=== PATIENT | female | born 1990 | race Caucasian/White ===

== ENCOUNTER → 2018-09-18 | Outpatient (CLI) | payer OTHER | LOC: RADECHMAIN 11:01 | PROVIDERS: ATTEND Family Medicine | DX: R00.2 Palpitations (principal) | CPT/HCPCS: 93005; 93270 ==

== ENCOUNTER → 2019-04-07 | Outpatient (CLI) | payer OTHER ==
[2019-04-07 15:04] LABS: Basophils % (A) 0 %; Eosinophils # (A) 0.1 k/uL (0-0.7); Eosinophils % (A) 2 %; HCT 35.5 % (34.0-46.0); HGB 12.1 gm/dL (11.4-16.0); Lymphocytes # (A) 2.3 k/uL (1.0-4.8); Lymphocytes % (A) 36 %; MCH 30.3 pg (25.0-35.0); MCV 89.3 fL (80.0-100.0); Mean Platelet Volume 6.6; Monocytes # (A) 0.6 k/uL (0-1.0); Monocytes % (A) 10 %; Neutrophils % (A) 48 %; Platelet Count 235 k/uL (150-450); RBC 3.98 m/uL (3.80-5.40); RDW 12.3 % (11.5-15.5); WBC 6.2 k/uL (3.8-10.6)
== END | disposition home or self-care (01) ==
LOC: LABWHC1 14:04
PROVIDERS: ATTEND Obstetrics & Gynecology
DX: Z01.812 Encounter for preprocedural laboratory examination (principal)
CPT/HCPCS: 36415; 85025

== ENCOUNTER 2019-04-09 07:17 | Day surgery (SDC) | payer OTHER ==
[2019-04-07 14:23] VITALS: BMI 24.3
[~2019-04-09 07:17] MED LIST: DEXAMETHASONE SOD PHOSPHATE 10 MG/ML 1 ML VIAL IV ONE; LACTATED RINGERS 1,000 ML IV SCH; LIDOCAINE 1% 20 ML VIAL (10MG/ML) FOR IV START INTRADERMA PRN; ONDANSETRON 4 MG/2 ML VIAL IVP ONE; Pre Op ABX Message 1 EACH MISC MISCELLANE ONE
--- NOTE | 2019-04-09 07:45 | P.HPOB ---
History of Present Illness H&P Date: 04/09/19 Chief Complaint: Cervical dysplasia Alissa is a 28-year-old female with cervical dysplasia. She is noted to have CHANDLER-3 on office colposcopy. She is scheduled for a LEEP colposcopy. Risks/benefits/alternatives reviewed with the patient in detail all questions were answered for her prior to proceeding to the operative room. It is noted that she has a IUD in place and she is aware that it may be that the strings have to be cut during the process at this procedure due to proximity of the procedure, this may make the IUD more difficult to remove, but should still be able to be removed without too much difficulty. All questions were answered for her at this time and she is stable for surgery at this time. Past Medical History Past Medical History: No Reported History Additional Past Medical History / Comment(s): Genital HSV, IBS History of Any Multi-Drug Resistant Organisms: None Reported Past Surgical History: No Surgical Hx Reported Additional Past Surgical History / Comment(s): COLONOSCOPY Past Anesthesia/Blood Transfusion Reactions: Previous Problems w/ Anesthesia Additional Past Anesthesia/Blood Transfusion Reaction / Comment(s): EPIDURAL WITH CHILDBIRTH-ELEVATED HEART RATE, RINGING IN EARS AND SHE COLLAPSED. Past Psychological History: No Psychological Hx Reported Smoking Status: Former smoker Past Alcohol Use History: None Reported Additional Past Alcohol Use History / Comment(s): QUIT SMOKING 1 YEAR AGO (2018), SMOKED 4 YEARS -SMOKED OCCASIONALLY. Past Drug Use History: None Reported - Past Family History Mother Family Medical History: Cancer Additional Family Medical History / Comment(s): SKIN CANCER Father Family Medical History: Diabetes Mellitus Medications and Allergies Home Medications Medication Instructions Recorded Confirmed Type Acyclovir (Unknown Dose) 1 tab PO BID 04/07/19 04/09/19 History [place]-3 Fatty Acids/Fish Oil [Fish 1 each PO DAILY 04/07/19 04/07/19 History Oil 1,000 mg Softgel] Vitamin C (Unknown Dose) 1 tab PO DAILY 04/07/19 04/07/19 History Allergies Allergy/AdvReac Type Severity Reaction Status Date / Time No Known Allergies Allergy Verified 04/07/19 13:52 Exam Osteopathic Statement: *. No significant issues noted on an osteopathic structural exam other than those noted in the History and Physical/Consult. Intake and Output 11/21/19 11/22/19 11/22/19 22:59 06:59 14:59 Other: Weight 68 kg - OBG Physical Exam Breast: both: normal (no masses) Abdomen: bowel sounds normal, no diffuse tenderness, no bruit present, no guarding noted, no hepatomegaly, no splenomegaly, no mass Vulva: both: normal Vagina: normal moisture, no discharge Cervix: no lesion, no discharge Uterus: normal size, normal contour Adnexa: both: normal Anus/Rectum: normal perianal skin, no rectal mass, no hemorrhoids, heme negative
[2019-04-09] MEDS ORDERED: fentaNYL (PF) 50 MCG/ML 2 ML AMP ONE (08:37)
[2019-04-09] MEDS ORDERED: PROPOFOL 10 MG/ML 20 ML VIAL IV ONE (08:37)
[2019-04-09] MEDS ORDERED: MIDAZOLAM 2 MG/2 ML VIAL ONE (08:37)
[2019-04-09] MEDS ORDERED: LIDOCAINE 1% INJ 10MG/ML (20 ML MDV) ONE (08:37)
[2019-04-09] MEDS ORDERED: FERRIC SUBSULFATE (MONSELS) JAR TOPICAL ONE (08:37)
[2019-04-09] MEDS ORDERED: KETOROLAC 30 MG/ML 1 ML VIAL ONE (08:37)
[2019-04-09] MEDS ORDERED: IODINE/POTASS IOD (LUGOLS) 8 ML BTL TOPICAL ONE (08:38)
--- NOTE | 2019-04-09 09:09 | P.OP ---
Date of Procedure: 04/09/19 Preoperative Diagnosis: CHANDLER-3 Postoperative Diagnosis: Same Procedure(s) Performed: LEEP colposcopy Anesthesia: CHERELLE Surgeon: Carl Laughlin Estimated Blood Loss (ml): 10 Pathology: other (Cervical cone) Condition: stable Operative Findings: Tissue pathology pending Description of Procedure: Patient was taken to the operating suite where a general anesthetic found be adequate. She was prepped and draped in normal sterile fashion and placed in the dorsal lithotomy position. Initially a coated speculum was inserted into the vagina and anterior and posterior cervix were covered with Lugol solution. Colposcope was brought in and identifying dysplastic areas a 2 cm loop was used to excise a cone of the cervix. Once this was completed ball-tipped cautery was used to obtain excellent hemostasis and desiccate any potential remaining dysplastic tissue on the ectocervical margin. All instruments were then removed. Sponge, lap, needle counts were all correct 2. Patient was then taken to the recovery room in stable and satisfactory condition. Plan - Discharge Summary New Discharge Prescriptions: New Ibuprofen [Motrin] 600 mg PO Q6HR PRN #30 tab PRN Reason: Pain HYDROcodone/APAP 5-325MG [[place] 5-325] 1 tab PO Q4HR PRN #30 tab PRN Reason: Pain No Action Acyclovir (Unknown Dose) 1 tab PO BID Vitamin C (Unknown Dose) 1 tab PO DAILY [place]-3 Fatty Acids/Fish Oil [Fish Oil 1,000 mg Softgel] 1 each PO DAILY Discharge Medication List Acyclovir (Unknown Dose) 1 tab PO BID 04/07/19 [History] [place]-3 Fatty Acids/Fish Oil [Fish Oil 1,000 mg Softgel] 1 each PO DAILY 04/07/19 [History] Vitamin C (Unknown Dose) 1 tab PO DAILY 04/07/19 [History] HYDROcodone/APAP 5-325MG [[place] 5-325] 1 tab PO Q4HR PRN #30 tab 04/09/19 [Rx] Ibuprofen [Motrin] 600 mg PO Q6HR PRN #30 tab 04/09/19 [Rx] Follow up Appointment(s)/Referral(s): Carl Laughlin DO [Doctor of Osteopathic Medicine] - 2 Weeks Activity/Diet/Wound Care/Special Instructions: No heavy lifting, and serous driving, and pelvic rest. If any high temperatures, heavy bleeding, or severe pain call my office Discharge Disposition: HOME SELF-CARE
[2019-04-09 09:18] VITALS: TEMP 97.7
[2019-04-09] MEDS: HYDROmorphone 1 MG/ML 1 ML SYRINGE IVP ONE ×2 (09:24→09:35)
[2019-04-09 09:26] VITALS: RESP 16
[2019-04-09] MEDS ORDERED: HYDROcodone/APAP 5-325MG 1 EACH TAB PO ONE (09:56)
[2019-04-09 10:21] VITALS: BP 103/65; PULSE 88
== END 2019-04-09 10:36 | disposition home or self-care (01) ==
LOC: OR 07:17
PROVIDERS: ATTEND Obstetrics & Gynecology
DX: N87.1 Moderate cervical dysplasia (principal); Z87.891 Personal history of nicotine dependence; K58.9 Irritable bowel syndrome, unspecified; Z79.899 Other long term (current) drug therapy; Z86.19 Personal history of other infectious and parasitic diseases; Z80.8 Family history of malignant neoplasm of other organs or systems; Z83.3 Family history of diabetes mellitus; Z97.5 Presence of (intrauterine) contraceptive device
CPT/HCPCS: 81025; 88307; 57461; J2250; J2001; J3010; J1885; J1170; J2704

== ENCOUNTER → 2023-06-03 | Outpatient (CLI) | payer OTHER | END | disposition home or self-care (01) | LOC: LABWHC1 10:40 | PROVIDERS: ATTEND Family Medicine | DX: R63.5 Abnormal weight gain (principal) | CPT/HCPCS: 36415; 84443 ==

== ENCOUNTER → 2024-08-18 | Outpatient (CLI) | payer OTHER ==
[2024-08-18 14:54] LABS: Basophils # (A) 0.07 X 10*3/uL (0.00-0.10); Basophils % (A) 0.9 %; HCT 38.5 % (37.2-46.3); HGB 12.8 g/dL (12.0-15.0); Lymphocytes # (A) 1.91 X 10*3/uL (0.90-5.00); Lymphocytes % (A) 23.9 %; MCH 30.1 pg (27.0-32.0); MCHC 33.2 g/dL (32.0-37.0); MCV 90.6 FL (80.0-97.0); Mean Platelet Volume 10.6 FL (9.5-12.2); Monocytes # (A) 0.65 X 10*3/uL (0.20-1.00); Monocytes % (A) 8.1 %; NRBC Per 100 WBC 0 X 10*3/uL (0.00-0.01); Neutrophils # (A) 4.54 X 10*3/uL (1.80-7.70); Neutrophils % (A) 56.7 %; Platelet Count 338 X 10*3/uL (140-440); RBC 4.25 X 10*6/uL (4.10-5.20); RDW 12.7 % (11.5-14.5)
[2024-08-18 15:32] LABS: BUN/Creat Ratio 17.88 Ratio (12.00-20.00); Blood Urea Nitrogen 14.3 mg/dL (9.0-27.0); C Reactive Protein <0.30 mg/dL (0.00-0.80); Glucose 98 mg/dL (70-110)
[2024-08-18 15:33] LABS: ALT 20 U/L (8-44); AST 23 U/L (13-35); Albumin 4.4 g/dL (3.8-4.9); Albumin/Globulin Ratio 1.69 Ratio (1.60-3.17); Alkaline Phosphatase 48 U/L (41-126); Calcium 9.4 mg/dL (8.7-10.3); Carbon Dioxide 23.8 mmol/L (21.6-31.8); Chloride 104 mmol/L (96-109); Globulin 2.6 g/dL (1.6-3.3); Potassium 4.9 mmol/L (3.5-5.5); Sodium 138 mmol/L (135-145); Total Bilirubin 0.4 mg/dL (0.3-1.2)
[2024-08-18 16:08] LABS: Erythrocyte Sedimentation Rate 18 mm/Hr (0-20)
[2024-08-18 17:30] LABS: DNA Double-Stranded Negative (Negative)
[2024-08-19 18:52] LABS: ANA Pattern Speckled
== END | disposition home or self-care (01) ==
LOC: LABWHC1 08:50
PROVIDERS: ATTEND Family Medicine
DX: R21 Rash and other nonspecific skin eruption (principal); R50.81 Fever presenting with conditions classified elsewhere; R53.83 Other fatigue
CPT/HCPCS: 36415; 80053; 85025; 85652; 86038; 86039; 86140; 86160; 86225; 86235